=== PATIENT | female | born 1975 | race Two or more races ===

== ENCOUNTER → 2021-12-21 | Day surgery (SDC) | payer OTHER, BC | END | disposition home or self-care (01) | LOC: FRADUS-SUR 08:38 | PROVIDERS: ATTEND Surgery Surgical Oncology | PROC: 0HBT3ZX Excision of Right Breast, Percutaneous Approach, Diagnostic (ICD-10-PCS; principal; 2021-12-21) | DX: N60.31 Fibrosclerosis of right breast (principal); N64.89 Other specified disorders of breast; R92.8 Other abnormal and inconclusive findings on diagnostic imaging of breast | CPT/HCPCS: 19085; 77065-TC; 88305-TC; A4648; A9579; C1887 ==